=== PATIENT | male | born 1955 | race Caucasian/White ===

== ENCOUNTER 2021-09-23 16:21 | Emergency (ER) | payer OTHER ==
[~2021-09-23] VITALS: Ht 182.9 cm; Wt 108.9 kg
[~2021-09-23 16:21] MED LIST: ALBU90OI INH; ASPI81CH PO; Advil200 M1 PO; BUPR150ER PO; DIAZ5 PO; KETO10 PO; QVAR7.3 G1 IH; TIOT18 INH
== END 2021-09-23 19:26 | disposition home or self-care (01) ==
LOC: ER 16:21
DX: S61.412A Laceration without foreign body of left hand, initial encounter (principal); F17.210 Nicotine dependence, cigarettes, uncomplicated; X58.XXXA Exposure to other specified factors, initial encounter
CPT/HCPCS: 12002; 73120; 90471; 90714; 99283-25